=== PATIENT | female | born 1980 | race Hispanic/Latino ===

== ENCOUNTER 2017-07-29 16:11 | Emergency (ER) | payer MEDICAID, OTHER ==
[2017-07-29 17:20] LABS: APPEARANCE,URINE Turbid (CLEAR); BILIRUBIN,URINE Negative (NEGATIVE); COLOR,URINE Yellow (YELLOW); GLUCOSE, URINE (UA) Negative (NEGATIVE); KETONES,URINE Negative (NEGATIVE); LEUKOCYTE ESTERASE ,URINE Large (NEGATIVE); NITRATE,URINE Negative (NEGATIVE); OCCULT BLOOD,URINE Small (NEGATIVE); PROTEIN,URINE Negative (NEGATIVE); UROBILINOGEN,URINE 0.2 mg/dL (0.2-1.0)
[2017-07-29 17:22] LABS: HCG,QUAL RESULT NEGATIVE (NEGATIVE)
[2017-07-29 17:45] LABS: RBC,URINE 0-1 /HPF (0-1)
[2017-07-29 17:46] LABS: BACTERIA,URINE Few /HPF (None Seen); MUCUS,URINE None Seen LPF (None Seen); SQUAMOUS EPITHELIAL CELL,UR Many /LPF (0-2); TRICHOMONAS,URINE None Seen /LPF (None Seen); YEAST,URINE BUDDING None Seen /HPF (None Seen)
[2017-07-29] MEDS ORDERED: IBUPROFEN 800 MG TAB ONE (18:14)
[2017-07-29] MEDS ORDERED: METOCLOPRAMIDE 10 MG TABLET ONE (18:14)
[2017-07-29 18:55] LABS: BASOPHILS % (AUTO) 0.9 % (0.0-5.0); EOSINOPHILS % (AUTO) 0.9 % (0.0-8.0); HEMATOCRIT 40.4 % (36-48); LYMPHOCYTES % (AUTO) 18.3 % (21.0-51.0); MEAN CORPUSCULAR HEMOGLOBIN 30.1 pg (27.0-33.0); MEAN CORPUSCULAR HGB CONC 34.6 g/dL (32.0-36.0); MEAN CORPUSCULAR VOLUME 87.2 fL (79-99); MONOCYTES % (AUTO) 3.3 % (3.0-13.0); NEUTROPHILS % (AUTO) 76.6 % (40.0-77.0); PLATELET COUNT (AUTO) 274 K/uL (130-400); RED BLOOD CELL COUNT(AUTO) 4.63 MIL/uL (4.00-5.50); WHITE BLOOD COUNT (AUTO) 9.6 K/uL (4.8-10.8)
[2017-07-29 18:59] LABS: CREATININE 0.9 mg/dL (0.5-1.5); POTASSIUM 3.9 mmol/L (3.5-5.1)
[2017-07-29 19:06] LABS: ALBUMIN 3.8 g/dL (3.5-5.0); BILIRUBIN,TOTAL 0.3 mg/dL (0.2-1.0); TOTAL PROTEIN, SERUM 7.8 g/dL (6.0-8.3)
== END 2017-07-29 19:42 | disposition home or self-care (01) ==
LOC: EDH 16:11
DX: G44.209 Tension-type headache, unspecified, not intractable (principal); J01.90 Acute sinusitis, unspecified; Z98.890 Other specified postprocedural states
CPT/HCPCS: 36415; 80053; 81001; 81025; 83690; 85025

== ENCOUNTER 2017-09-17 09:48 | Emergency (ER) | payer MEDICAID, OTHER | END 2017-09-17 10:08 | disposition home or self-care (01) | LOC: EDH 09:48 | DX: R51 Headache (principal); Z98.890 Other specified postprocedural states | CPT/HCPCS: 99281 ==

== ENCOUNTER 2018-06-03 09:26 | Emergency (ER) | payer MEDICAID, OTHER | END 2018-06-03 10:16 | disposition home or self-care (01) | LOC: EDH 09:26 | DX: M25.512 Pain in left shoulder (principal); M54.2 Cervicalgia; M54.6 Pain in thoracic spine | CPT/HCPCS: 99281 ==

== ENCOUNTER 2020-12-26 19:04 | Emergency (ER) | payer MEDICAID, OTHER ==
[~2020-12-26] VITALS: Ht 157.5 cm; Wt 102.5 kg
[2020-12-26 19:07] VITALS: BP 158/89
[2020-12-26] MEDS ORDERED: LACTATED RINGERS 1000ML 1,000 ML IV ONE ×2 (20:27→20:30)
[2020-12-26] MEDS ORDERED: CEFTRIAXONE 1G VIAL ONE (20:27)
[2020-12-26] MEDS ORDERED: ASPIRIN 325MG TAB ONE (20:27)
[2020-12-26] MEDS ORDERED: PHENAZOPYRIDINE HCL 200 MG TABLET PO ONE (20:30)
[2020-12-26] MEDS ORDERED: CEFTRIAXONE 1G VIAL IVP ONE (20:30)
[2020-12-26] MEDS ORDERED: ASPIRIN 325MG TAB PO ONE (20:30)
[2020-12-26 20:38] LABS: BASOPHILS % (AUTO) 0.4 % (0.0-5.0); EOSINOPHILS % (AUTO) 0.1 % (0.0-8.0); HEMATOCRIT 36.3 % (36-48); LYMPHOCYTES % (AUTO) 12.5 % (21.0-51.0); MEAN CORPUSCULAR HEMOGLOBIN 28.1 pg (27.0-33.0); MEAN CORPUSCULAR HGB CONC 33.1 g/dL (32.0-36.0); MONOCYTES % (AUTO) 5.4 % (3.0-13.0); PLATELET COUNT (AUTO) 277 K/uL (130-400); RED BLOOD CELL COUNT(AUTO) 4.27 MIL/uL (4.00-5.50); RED CELL DISTRIBUTION WIDTH 14.3 % (11.0-15.5); WHITE BLOOD COUNT (AUTO) 6.9 K/uL (4.8-10.8)
[2020-12-26 20:40] LABS: APPEARANCE,URINE Cloudy (CLEAR); BILIRUBIN,URINE Negative (NEGATIVE); COLOR,URINE Yellow (YELLOW); GLUCOSE, URINE (UA) Negative (NEGATIVE); KETONES,URINE Negative (NEGATIVE); LEUKOCYTE ESTERASE ,URINE Large (NEGATIVE); NITRATE,URINE Negative (NEGATIVE); OCCULT BLOOD,URINE Large (NEGATIVE); PROTEIN,URINE Trace mg/dL (NEGATIVE)
[2020-12-26 20:42] LABS: CREATININE 1.1 mg/dL (0.5-1.5); CRP QUANTITATIVE 68.3 mg/L (0.00-9.0); POTASSIUM 3.8 mmol/L (3.5-5.1)
[2020-12-26 20:46] LABS: BACTERIA,URINE Few /HPF (None Seen); RBC,URINE 0-1 /HPF (0-1); SQUAMOUS EPITHELIAL CELL,UR Moderate /HPF (0-2)
[2020-12-26] MEDS ORDERED: IOHEXOL 350 MG/ML 100ML INFUS..BTL IV ONE (22:07)
[2020-12-26] MEDS ORDERED: CEFU500T67 PO (23:37)
[2020-12-26] MEDS ORDERED: MAGNESIUM CITRATE 296 ML SOLUTION ONE (23:53)
[2020-12-27] MEDS ORDERED: MAGNESIUM CITRATE 296 ML SOLUTION PO ONE
== END 2020-12-27 00:28 | disposition home or self-care (01) ==
LOC: EDH 19:04
DX: N10 Acute pyelonephritis (principal); K59.00 Constipation, unspecified; Z20.822 Contact with and (suspected) exposure to COVID-19; Z98.890 Other specified postprocedural states
CPT/HCPCS: 36415; 74177; 80048; 81001; 85025; 86140; 87088; 87635; 96361; 96374; 99285; C9803; J0696; J7120; Q9967